=== PATIENT | female | born 1990 | race Caucasian/White ===

== ENCOUNTER 2019-09-30 20:42 | Day surgery (SDC) | payer BC ==
--- NOTE | 2019-09-30 21:05 | EDM.PDOC ---
ED HPI GENERAL MEDICAL PROBLEM <Spencer Box - Last Filed: 10/01/19 02:32> - General Source of Information: Reports: Patient History Limitations: Reports: No Limitations Head Pain Score (Numeric/FACES): 1 <Cooper Zayas - Last Filed: 10/01/19 10:15> - General Chief Complaint: RN DIALYSIS Problem Stated Complaint: spoke to nurse Time Seen by Provider: 09/30/19 20:44 - History of Present Illness INITIAL COMMENTS - FREE TEXT/NARRATIVE: HISTORY AND PHYSICAL: History of present illness: Patient is a 29-year-old female who presents to the emergency room with complaints of vaginal bleeding in . Patient reports her last menstrual period was July 23, did have a confirmed test with her primary care provider. She estimates she is approximately 9 to 10 weeks gestation. Yesterday she had severe abdominal cramping and started bleeding. She states that she has had a previous miscarriage and thought she would wait a couple days before being evaluated, hoping it usama resolve at home. Currently she is pain-free but continues to have heavy vaginal bleeding. Denies any recent sexual intercourse. Denies any trauma or injury. Patient denies any fever, chills, headache, change in vision, syncope or near syncope. Denies any chest pain, back pain, shortness of breath or cough. Denies any abdominal pain, nausea, vomiting, diarrhea, constipation or dysuria. Patient has been eating and drinking appropriately. OBGYN is Dr Grande. , P:1 (previous miscarriage at 10 weeks). Review of systems: As per history of present illness and below otherwise all systems reviewed and negative. Past medical history: As per history of present illness and as reviewed below otherwise noncontributory. Surgical history: As per history of present illness and as reviewed below otherwise noncontributory. Social history: See social history for further information Family history: As per history of present illness and as reviewed below otherwise noncontributory. Physical exam: General: Well-developed and well-nourished 29-year-old female. Alert and oriented. Nontoxic-appearing and in no acute distress. HEENT: Atraumatic, normocephalic, pupils equal and reactive bilaterally, negative for conjunctival pallor or scleral icterus, mucous membranes moist, TMs normal bilaterally, throat clear, neck supple, nontender, trachea midline. No drooling or trismus noted. No meningeal signs. No hot potato voice noted. Lungs: Clear to auscultation, breath sounds equal bilaterally, chest nontender. Heart: S1S2, regular rate and rhythm without overt murmur Abdomen: Soft, nondistended, nontender. Negative for masses or hepatosplenomegaly. Negative for costovertebral tenderness. Skin: Intact, warm, dry. No lesions or rashes noted. Extremities: Atraumatic, moves all extremities per self without difficulty or deficits, negative for cords or calf pain. Neurovascular unremarkable. Neuro: Awake, alert, oriented. Cranial nerves II through XII unremarkable. Cerebellum unremarkable. Motor and sensory unremarkable throughout. Exam nonfocal. Notes: Patient states she is not in pain and would prefer not to have any form of narcotics as she states she has a problem with the addiction component in these. Some lab results and ultrasound report are pending. Dr Box will follow through with this patient and disposition appropriately. Diagnostics: CBC, CMP, UA, AB/RH, OB ultrasound Therapeutics: RhoGam, IV fluids Definitive disposition and diagnosis as appropriate pending reevaluation and review of above. (Cooper Zayas) - Related Data Allergies Allergy/AdvReac Type Severity Reaction Status Date / Time amoxicillin Allergy Other Verified 09/30/19 20:47 Home Meds: Home Meds . [No Known Home Meds] 09/30/19 [History] Past Medical History RN DIALYSIS History: Reports: Spontaneous - Infectious Disease History Infectious Disease History: Reports: Chicken Pox - Past Surgical History Female Surgical History: Reports: Section, Other (See Below) <Cooper Zayas - Last Filed: 10/01/19 10:15> Social & Family History - Family History Family Medical History: Noncontributory - Tobacco Use Smoking Status *Q: Current Every Day Smoker Years of Tobacco use: 15 Packs/Tins Daily: 1 - Caffeine Use Caffeine Use: Reports: Coffee, Energy Drinks, Soda, Tea - Recreational Drug Use Recreational Drug Use: Yes Recreational Drug Type: Reports: Marijuana/Hashish Recreational Drug Use Frequency: Not Used In Over 1 Month <Cooper Zayas - Last Filed: 10/01/19 10:15> ED ROS GENERAL - Review of Systems Review Of Systems: See Below <Spencer Box - Last Filed: 10/01/19 02:32> - Review of Systems Review Of Systems: Comprehensive ROS is negative, except as noted in HPI. <Cooper Zayas - Last Filed: 10/01/19 10:15> ED EXAM - Physical Exam Exam: See Below Exam Limited By: No Limitations General Appearance: Alert, WD/WN, Anxious Ears: Normal External Exam, Normal Canal, Hearing Grossly Normal, Normal TMs Nose: Normal Inspection Throat/Mouth: Normal Inspection, Normal Lips, Normal Teeth Head: Atraumatic, Normocephalic Neck: Normal Inspection Respiratory/Chest: No Respiratory Distress, Lungs Clear, Normal Breath Sounds Cardiovascular: Normal Peripheral Pulses, Regular Rate, Rhythm, No JVD GI/Abdominal Exam: Normal Bowel Sounds, Soft, Non-Tender, No Organomegaly (Female) Exam: Vaginal Bleeding, Other (Patient's exam through RN DIALYSIS/active bleeding/ultrasound shows pleat AB with active bleeding) Back Exam: Normal Inspection, Full Range of Motion Extremities: Normal Inspection, Normal Range of Motion, No Pedal Edema Neurological: Alert, Oriented, CN II-XII Intact, Normal Reflexes, No Motor/ Sensory Deficits Psychiatric: Normal Affect, Normal Mood Skin Exam: Warm, Dry, Intact, Normal Color Lymphatic: No Adenopathy <Spencer Box - Last Filed: 10/01/19 02:32> - Physical Exam Exam: See Below <Cooper Zayas - Last Filed: 10/01/19 10:15> Course <Spnecer Box - Last Filed: 10/01/19 02:32> <Cooper Zayas - Last Filed: 10/01/19 10:15> - Vital Signs Text/Narrative:: 421 for this patient this is Dr. Box. G3, P1 Ab1 10 weeks with an ultrasound that shows probable miscarriage in process. Patient has been receiving IV fluids heart rate now is 96 initially 130 in triage. Patient's hemoglobin is 8/no previous CBCs to compare. Patient also is Rh- has received 1 g. I discussed the case with the K[employer] rn telephone triage who will come down to evaluate the patient. . Patient's evaluated by RN DIALYSIS felt to to go to the OR for D&C patient receiving blood products. Patient will be admitted for incomplete AB with severe anemia and hypotension. (Spencer Box) Last Recorded V/S: Last Vital Signs Temp 98.1 F 10/01/19 07:00 Pulse 95 10/01/19 08:00 Resp 17 10/01/19 08:00 BP 92/51 L 10/01/19 08:00 Pulse Ox 98 10/01/19 08:00 - Orders/Labs/Meds Orders: Active Orders 24 hr Category Date Time Status Admission Status [Patient Status] [ADT] Stat ADT 10/01/19 02:22 Active Patient Status [ADT] Routine ADT 10/01/19 03:40 Active Antiembolic Devices [RC] PER UNIT ROUTINE Care 10/01/19 03:40 Active Influenza Vaccine Charge [RC] .DISCHARGE Care 10/01/19 09:08 Active Notify Provider Consults [RC] ASDIRECTED Care 10/01/19 00:37 Active Notify Provider Intake and Out [RC] ASDIRECTED Care 10/01/19 03:40 Active Notify Provider Vital Signs [RC] ASDIRECTED Care 10/01/19 03:40 Active RT Incentive Spirometry [RC] Q2HWA Care 10/01/19 03:40 Active Up With Assistance [RC] PER UNIT ROUTINE Care 10/01/19 03:40 Active Up ad Teagan [RC] PER UNIT ROUTINE Care 10/01/19 03:40 Active Vaccines to be Administered [RC] PER UNIT ROUTINE Care 10/01/19 09:08 Active Vital Signs [RC] PER UNIT ROUTINE Care 10/01/19 03:40 Active Consult to Physician [CONS] Stat Cons 10/01/19 00:36 Active Regular Diet [DIET] Diet 10/01/19 Breakfast Active RED BLOOD CELLS LP [BBK] Stat Lab 10/01/19 00:32 Results RED BLOOD CELLS LP [BBK] Stat Lab 10/01/19 00:45 Results RH IMMUNE GLOBULIN [BBK] Stat Lab 09/30/19 21:04 Results RHOGAM, [RHIG WORKUP, ] [BBK] Stat Lab 09/30/19 21:04 Results TYPE AND SCREEN [BBK] Stat Lab 09/30/19 21:04 Results TYPE AND SCREEN [BBK] Stat Lab 10/01/19 00:45 Results Acetaminophen/oxyCODONE [Percocet 325-5 MG] Med 10/01/19 03:39 Active 1 tab PO Q4H PRN Acetaminophen/oxyCODONE [Percocet 325-5 MG] Med 10/01/19 03:39 Active 2 tab PO Q4H PRN Ketorolac [Toradol] Med 10/01/19 09:00 Active 30 mg IVPUSH Q6H PRN Lactated Ringers [Ringers, Lactated] 1,000 ml Med 10/01/19 03:45 Active IV ASDIRECTED Morphine Med 10/01/19 03:39 Active 4 mg IVPUSH Q2H PRN Ondansetron [Zofran] Med 10/01/19 03:39 Active 4 mg IVPUSH Q6H PRN Promethazine [Phenergan] Med 10/01/19 03:39 Active 25 mg IM Q6H PRN fentaNYL [Sublimaze] Med 10/01/19 01:59 Active 50 mcg IVPUSH Q5M PRN Peripheral IV Discontinue [OM.PC] Routine Oth 10/01/19 03:40 Ordered Sequential Compression Device [OM.PC] Per Unit Routine Oth 10/01/19 03:40 Ordered Resuscitation Status Routine Resus Stat 10/01/19 03:39 Ordered Medication Orders Fentanyl (Sublimaze) 50 mcg IVPUSH Q5M PRN PRN Reason: Pain Lactated Ringer's (Ringers, Lactated) 1,000 mls @ 125 mls/hr IV ASDIRECTED KEISHA Last Admin: 10/01/19 06:43 Dose: 125 mls/hr Ketorolac Tromethamine (Toradol) 30 mg IVPUSH Q6H PRN PRN Reason: Pain (severe 7-10) Stop: 10/06/19 09:01 Morphine Sulfate (Morphine) 4 mg IVPUSH Q2H PRN PRN Reason: Pain (severe 7-10) Ondansetron HCl (Zofran) 4 mg IVPUSH Q6H PRN PRN Reason: Nausea/Vomiting Oxycodone/Acetaminophen (Percocet 325-5 Mg) 1 tab PO Q4H PRN PRN Reason: Pain (moderate 4-6) Oxycodone/Acetaminophen (Percocet 325-5 Mg) 2 tab PO Q4H PRN PRN Reason: Pain (moderate 4-6) Promethazine HCl (Phenergan) 25 mg IM Q6H PRN PRN Reason: Nausea/Vomiting Labs: Laboratory Tests 09/30/19 09/30/19 09/30/19 Range/Units 21:04 21:04 21:04 WBC 13.41 H (4.0-11.0) K/uL RBC 2.81 L (4.30-5.90) M/uL Hgb 8.6 L (12.0-16.0) g/dL Hct 25.7 L (36.0-46.0) % MCV 91.5 (80.0-98.0) fL MCH 30.6 (27.0-32.0) pg MCHC 33.5 (31.0-37.0) g/dL RDW Std Deviation 42.4 (28.0-62.0) fl RDW Coeff of Sheela 13 (11.0-15.0) % Plt Count 188 (150-400) K/uL MPV 9.40 (7.40-12.00) fL Neut % (Auto) 77.3 (48.0-80.0) % Lymph % (Auto) 15.5 L (16.0-40.0) % Kaufman % (Auto) 6.5 (0.0-15.0) % Eos % (Auto) 0.6 (0.0-7.0) % Baso % (Auto) 0.1 (0.0-1.5) % Neut # (Auto) 10.4 H (1.4-5.7) K/uL Lymph # (Auto) 2.1 (0.6-2.4) K/uL Kaufman # (Auto) 0.9 H (0.0-0.8) K/uL Eos # (Auto) 0.1 (0.0-0.7) K/uL Baso # (Auto) 0.0 (0.0-0.1) K/uL Nucleated RBC % 0.0 /100WBC Nucleated RBCs # 0 K/uL Sodium 141 (136-145) mmol/L Potassium 4.1 (3.5-5.1) mmol/L Chloride 105 (98-107) mmol/L Carbon Dioxide 24.4 (21.0-32.0) mmol/L BUN 9 (7.0-18.0) mg/dL Creatinine 1.0 (0.6-1.0) mg/dL Est Cr Clr Drug Dosing 91.94 mL/min Estimated GFR (MDRD) > 60.0 ml/min Glucose 133 H (74-106) mg/dL Calcium 9.5 (8.5-10.1) mg/dL Total Bilirubin 0.2 (0.2-1.0) mg/dL AST 14 L (15-37) IU/L ALT 21 (14-63) IU/L Alkaline Phosphatase 54 (46-116) U/L Total Protein 6.3 L (6.4-8.2) g/dL Albumin 3.1 L (3.4-5.0) g/dL Globulin 3.2 (2.6-4.0) g/dL Albumin/Globulin Ratio 1.0 (0.9-1.6) HCG, Quant 61546.0 mIU/mL Urine Color Urine Appearance Urine pH (5.0-8.0) Ur Specific [place] (1.001-1.035) Urine Protein (NEGATIVE) mg/dL Urine Glucose (UA) (NEGATIVE) mg/dL Urine Ketones (NEGATIVE) mg/dL Urine Occult Blood (NEGATIVE) Urine Nitrite (NEGATIVE) Urine Bilirubin (NEGATIVE) Urine Urobilinogen (<2.0) EU/dL Ur Leukocyte Esterase (NEGATIVE) Urine RBC (0-2/HPF) Urine WBC (0-5/HPF) Ur Epithelial Cells (NONE-FEW) Urine Bacteria (NEGATIVE) Blood Type O NEGATIVE Antibody Screen NEGATIVE Rhogam Indicated YES Crossmatch See Detail 10/01/19 10/01/19 10/01/19 Range/Units 00:45 01:30 09:08 WBC 9.72 (4.0-11.0) K/uL RBC 2.43 L (4.30-5.90) M/uL Hgb 7.3 L (12.0-16.0) g/dL Hct 21.3 L (36.0-46.0) % MCV 87.7 (80.0-98.0) fL MCH 30.0 (27.0-32.0) pg MCHC 34.3 (31.0-37.0) g/dL RDW Std Deviation 46.7 (28.0-62.0) fl RDW Coeff of Sheela 15 (11.0-15.0) % Plt Count 151 (150-400) K/uL MPV 9.40 (7.40-12.00) fL Neut % (Auto) 66.6 (48.0-80.0) % Lymph % (Auto) 25.2 (16.0-40.0) % Kaufman % (Auto) 7.2 (0.0-15.0) % Eos % (Auto) 0.9 (0.0-7.0) % Baso % (Auto) 0.1 (0.0-1.5) % Neut # (Auto) 6.5 H (1.4-5.7) K/uL Lymph # (Auto) 2.5 H (0.6-2.4) K/uL Kaufman # (Auto) 0.7 (0.0-0.8) K/uL Eos # (Auto) 0.1 (0.0-0.7) K/uL Baso # (Auto) 0.0 (0.0-0.1) K/uL Nucleated RBC % 0.0 /100WBC Nucleated RBCs # 0 K/uL Sodium (136-145) mmol/L Potassium (3.5-5.1) mmol/L Chloride (98-107) mmol/L Carbon Dioxide (21.0-32.0) mmol/L BUN (7.0-18.0) mg/dL Creatinine (0.6-1.0) mg/dL Est Cr Clr Drug Dosing mL/min Estimated GFR (MDRD) ml/min Glucose (74-106) mg/dL Calcium (8.5-10.1) mg/dL Total Bilirubin (0.2-1.0) mg/dL AST (15-37) IU/L ALT (14-63) IU/L Alkaline Phosphatase (46-116) U/L Total Protein (6.4-8.2) g/dL Albumin (3.4-5.0) g/dL Globulin (2.6-4.0) g/dL Albumin/Globulin Ratio (0.9-1.6) HCG, Quant mIU/mL Urine Color YELLOW Urine Appearance SLT CLOUDY Urine pH 6.0 (5.0-8.0) Ur Specific [place] 1.015 (1.001-1.035) Urine Protein NEGATIVE (NEGATIVE) mg/dL Urine Glucose (UA) NEGATIVE (NEGATIVE) mg/dL Urine Ketones NEGATIVE (NEGATIVE) mg/dL Urine Occult Blood LARGE H (NEGATIVE) Urine Nitrite NEGATIVE (NEGATIVE) Urine Bilirubin NEGATIVE (NEGATIVE) Urine Urobilinogen 0.2 (<2.0) EU/dL Ur Leukocyte Esterase SMALL H (NEGATIVE) Urine RBC 40-50 (0-2/HPF) Urine WBC 1-4 (0-5/HPF) Ur Epithelial Cells FEW (NONE-FEW) Urine Bacteria RARE (NEGATIVE) Blood Type O NEGATIVE Antibody Screen NEGATIVE Rhogam Indicated Crossmatch See Detail Meds: Medications Generic Name Dose Route Start Last Admin Trade Name Freq PRN Reason Stop Dose Admin Fentanyl 50 mcg 10/01/19 01:59 Sublimaze IVPUSH Q5M PRN Pain Lactated Ringer's 1,000 mls @ 125 mls/hr 10/01/19 03:45 10/01/19 06:43 Ringers, Lactated IV 125 mls/hr ASDIRECTED KEISHA Administration Ketorolac Tromethamine 30 mg 10/01/19 09:00 Toradol IVPUSH 10/06/19 09:01 Q6H PRN Pain (severe 7-10) Morphine Sulfate 4 mg 10/01/19 03:39 Morphine IVPUSH Q2H PRN Pain (severe 7-10) Ondansetron HCl 4 mg 10/01/19 03:39 Zofran IVPUSH Q6H PRN Nausea/Vomiting Oxycodone/Acetaminophen 1 tab 10/01/19 03:39 Percocet 325-5 Mg PO Q4H PRN Pain (moderate 4-6) Oxycodone/Acetaminophen 2 tab 10/01/19 03:39 Percocet 325-5 Mg PO Q4H PRN Pain (moderate 4-6) Promethazine HCl 25 mg 10/01/19 03:39 Phenergan IM Q6H PRN Nausea/Vomiting Discontinued Medications Generic Name Dose Route Start Last Admin Trade Name Freq PRN Reason Stop Dose Admin Diphtheria/Tetanus/Acell Pertussis 0.5 ml 10/01/19 09:08 Adacel IM 10/01/19 09:09 .ONCE ONE Doxycycline Hyclate 200 mg 10/01/19 01:25 10/01/19 01:34 Vibramycin PO 10/01/19 01:26 200 mg ONETIME ONE Administration Doxycycline Hyclate 100 mg 10/01/19 05:00 10/01/19 07:29 Vibramycin PO 10/01/19 05:01 Not Given ONETIME ONE Etomidate Confirm 10/01/19 02:04 Amidate Administered 10/01/19 02:05 Dose 40 mg IVPUSH .STK-MED ONE Fentanyl Confirm 10/01/19 02:06 Sublimaze Administered 10/01/19 02:07 Dose 100 mcg .ROUTE .STK-MED ONE Glycopyrrolate Confirm 10/01/19 02:05 Robinul Administered 10/01/19 02:06 Dose 0.2 mg .ROUTE .STK-MED ONE Sodium Chloride 1,000 mls @ 999 mls/hr 09/30/19 21:15 09/30/19 23:00 Normal Saline IV 09/30/19 22:15 999 mls/hr STAT ONE Administration Sodium Chloride 1,000 mls @ 999 mls/hr 10/01/19 01:51 10/01/19 02:05 Normal Saline IV 10/01/19 02:51 999 mls/hr .Bolus ONE Administration Sodium Chloride 1,000 mls @ 999 mls/hr 10/01/19 01:51 10/01/19 02:06 Normal Saline IV 10/01/19 02:51 999 mls/hr .Bolus ONE Administration Influenza Virus Vaccine 1 each 10/01/19 09:07 Pharmacy To Dose - Influenza Vaccine IM 10/01/19 09:08 ONETIME ONE Influenza Virus Vaccine 60 mcg 10/01/19 09:30 Fluzone Quad 1328-1956 Syringe IM 10/01/19 09:31 .ONCE ONE Ketorolac Tromethamine 30 mg 10/01/19 03:39 10/01/19 04:00 Toradol IVPUSH 10/01/19 03:40 30 mg ONETIME ONE Administration Lidocaine HCl Confirm 10/01/19 02:04 Xylocaine-Mpf 1% Administered 10/01/19 02:05 Dose 5 ml .ROUTE .STK-MED ONE Methylergonovine Maleate 0.2 mg 10/01/19 01:47 10/01/19 02:03 Methergine PO 10/01/19 01:48 Not Given ONETIME ONE Methylergonovine Maleate Confirm 10/01/19 01:55 10/01/19 02:03 Methergine Administered 10/01/19 01:56 Not Given Dose 0.2 mg .ROUTE .STK-MED ONE Methylergonovine Maleate 0.2 mg 10/01/19 02:02 10/01/19 02:03 Methergine IM 10/01/19 02:03 0.2 mg Q4H ONE Administration Midazolam HCl Confirm 10/01/19 02:06 Versed 1 Mg/Ml Administered 10/01/19 02:07 Dose 2 mg .ROUTE .STK-MED ONE Misoprostol Confirm 10/01/19 02:33 10/01/19 07:29 Cytotec Administered 10/01/19 02:34 Not Given Dose 800 mcg .ROUTE .STK-MED ONE Ondansetron HCl Confirm 10/01/19 02:04 Zofran Administered 10/01/19 02:05 Dose 4 mg .ROUTE .STK-MED ONE Phenylephrine HCl Confirm 10/01/19 02:02 Lalo-Synephrine Administered 10/01/19 02:03 Dose 10 mg .ROUTE .STK-MED ONE Tranexamic Acid Confirm 10/01/19 02:28 Cyklokapron Administered 10/01/19 02:29 Dose 1,000 mg .ROUTE .STK-MED ONE Departure - Departure Time of Disposition: 02:34 Condition: Fair <Spencer Box - Last Filed: 10/01/19 02:32> <Cooper Zayas - Last Filed: 10/01/19 10:15> - Departure Disposition: Admitted As Inpatient 65 Clinical Impression: Incomplete , Incomplete with complication Sepsis Event Note - Focused Exam Date Exam was Performed: 10/01/19 Time Exam was Performed: 02:32 <Spencer Box - Last Filed: 10/01/19 02:32> - Evaluation Sepsis Screening Result: No Definite Risk - Focused Exam Date Exam was Performed: 10/01/19 Time Exam was Performed: 10:12 <Cooper Zayas E - Last Filed: 10/01/19 10:15> - Focused Exam Vital Signs: Vital Signs Temp Temp Pulse Resp BP Pulse Ox 10/01/19 08:00 95 17 92/51 L 98 10/01/19 07:00 98.1 F 99/51 L 10/01/19 06:30 15 91/48 L 95 10/01/19 06:00 98.1 F 16 98/49 L 95 10/01/19 05:45 91 15 107/53 L 95 10/01/19 05:30 92 14 106/51 L 95 10/01/19 05:15 98.4 F 94 14 115/53 L 98 10/01/19 04:05 106 H 11 L 114/35 L 100 10/01/19 04:00 92 13 128/49 L 100 10/01/19 03:55 100 14 122/53 L 100 10/01/19 03:50 100 13 119/50 L 100 10/01/19 03:45 99 10 L 118/49 L 100 10/01/19 03:40 99 9 L 112/43 L 100 10/01/19 03:35 109 H 12 120/50 L 100 10/01/19 03:30 106 H 18 115/59 L 100 10/01/19 03:25 105 H 12 114/64 100 10/01/19 03:20 102 H 11 L 107/66 100 10/01/19 03:15 110 H 15 117/56 L 99 10/01/19 03:10 98.6 F 135 H 18 125/48 L 98 10/01/19 02:08 104 H 16 127/81 100 10/01/19 02:00 100 16 127/81 10/01/19 01:52 98.5 F 98 16 110/66 10/01/19 01:34 97 16 103/79 100 09/30/19 23:48 97 16 120/55 L 100 09/30/19 23:10 97.1 F 97 16 124/61 09/30/19 22:49 97.1 F 103 H 16 139/61 - My Orders Last 24 Hours: My Active Orders 09/30/19 21:04 RH IMMUNE GLOBULIN [BBK] Stat RHOGAM, [RHIG WORKUP, ] [BBK] Stat - Assessment/Plan Last 24 Hours: My Active Orders 09/30/19 21:04 RH IMMUNE GLOBULIN [BBK] Stat RHOGAM, [RHIG WORKUP, ] [BBK] Stat
[2019-09-30] MEDS: Sodium Chloride 0.9% 1,000 ML IV ONE ×2 (21:37→23:00)
[2019-09-30 21:53] LABS: BLOOD UREA NITROGEN,BUN 9 mg/dL (7.0-18.0); CARBON DIOXIDE,CO2 24.4 mmol/L (21.0-32.0); CHLORIDE,CL 105 mmol/L (98-107); GLUCOSE RANDOM 133 mg/dL (74-106); POTASSIUM,K 4.1 mmol/L (3.5-5.1); SODIUM,NA 141 mmol/L (136-145)
--- NOTE | 2019-09-30 22:30 | US ---
INDICATION: Vaginal bleeding in . Passing blood clot TECHNIQUE: Real-time tavarez-scale imaging of the pelvis was performed. FINDINGS: Thickened heterogeneous endometrium measuring 2.5 centimeters could be related to presence of blood products. There is large amount of heterogeneous material in the endocervical canal. Small cystic structure seen in the endocervical canal question could be related to possible gestational sac versus debris/blood products. There is debris within the urinary bladder. Both ovaries are visualized. No adnexal mass or free fluid is seen. IMPRESSION: Heterogeneous thickened endometrium measuring 2.5 centimeters may be related to presence of blood products. Large amount of heterogeneous material in the endocervical canal. Small cystic structure in the endocervical canal could reflect small gestational sac there is no surrounding blood flow present. This also could be related to debris or blood products in the endocervical canal. Both ovaries are visualized and appear normal. There is no adnexal mass. No free fluid visualized. Impression: Findings suspicious for miscarriage in progress. Recommend correlation with HCG levels and close follow-up. Dictated by Kacey Mccarthy MD @ Sep 30 2019 10:19PM Signed by Dr. Kacey Mccarthy @ Sep 30 2019 10:29PM
--- NOTE | 2019-10-01 00:40 | EDM.PDOC ---
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 she states she was soaking through pads on , she used about 3 pads, her bleeding lessened on wednesday and today she has been having bleeding for about 3 hrs. she also states she jan dizzy and almost passed out. She is yet to establish care with Dr Grande. Patient is RH negative and has recieved rhogam in the ER . she has also recieved IV fluid and states her dizziness is improved OB hx; X 1 Design Director: SAB X 1 FSH:Smoker , Hx of Marijuana use Allergies : Amoxicillin Exam: General: NAD Chest: CTA BL CVS S1 S2 no murmurs Abdomen: Soft , non tender, no masses , no rebound or guarding Pelvic: Normal external genitalia , 10 week sized uterus , Cervix - os opened with clot within , attempted to remove some clots and products with ring forcep , however still bleeding VSS:103/79 ., 97 CBC 13 < 8.6/25.7> 188 A/P 29 @ 10w0d with incomplete , Rh negative , recieved rhogam , Anemia Plan NPO IVF bolus running Doxycycline 200mg stat 2UPRBC Patient consent for Suction D & C - Related Data Allergies Allergy/AdvReac Type Severity Reaction Status Date / Time amoxicillin Allergy Other Verified 09/30/19 20:47 Home Meds: Home Meds . 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 - Infectious Disease History Infectious Disease History: Reports: Chicken Pox - Past Surgical History Female Surgical History: Reports: Section, Other (See Below) Social & Family History - Family History Family Medical History: Noncontributory - Tobacco Use Smoking Status *Q: Current Every Day Smoker Years of Tobacco use: 15 Packs/Tins Daily: 1 - Caffeine Use Caffeine Use: Reports: Coffee, Energy Drinks, Soda, Tea - Recreational Drug Use Recreational Drug Use: Yes Recreational Drug Type: Reports: Marijuana/Hashish Recreational Drug Use Frequency: Not Used In Over 1 Month ED ROS GENERAL - Review of Systems Review Of Systems: See Below Constitutional: Reports: Fatigue HEENT: Reports: No Symptoms Respiratory: Reports: No Symptoms Cardiovascular: Reports: No Symptoms Endocrine: Reports: No Symptoms ED EXAM - Physical Exam Exam: See Below Exam Limited By: No Limitations Throat/Mouth: Normal Inspection Respiratory/Chest: No Respiratory Distress Cardiovascular: Normal Peripheral Pulses Course - Vital Signs Last Recorded V/S: Last Vital Signs Temp 36.9 C 10/01/19 01:52 Pulse 98 10/01/19 01:52 Resp 16 10/01/19 01:52 BP 110/66 10/01/19 01:52 Pulse Ox 100 10/01/19 01:34 - Orders/Labs/Meds Orders: Active Orders 24 hr Category Date Time Status Notify Provider Consults [RC] ASDIRECTED Care 10/01/19 00:37 Active Consult to Physician [CONS] Stat Cons 10/01/19 00:36 Active RED BLOOD CELLS LP [BBK] Stat Lab 10/01/19 00:32 Results RED BLOOD CELLS LP [BBK] Stat Lab 10/01/19 00:45 Results RH IMMUNE GLOBULIN [BBK] Stat Lab 09/30/19 21:04 Results RHOGAM, [RHIG WORKUP, ] [BBK] Stat Lab 09/30/19 21:04 Results TYPE AND SCREEN [BBK] Stat Lab 09/30/19 21:04 Results TYPE AND SCREEN [BBK] Stat Lab 10/01/19 00:45 Results Sodium Chloride 0.9% [Normal Saline] 1,000 ml Med 10/01/19 01:51 Active IV .Bolus Sodium Chloride 0.9% [Normal Saline] 1,000 ml Med 10/01/19 01:51 Active IV .Bolus Medication Orders Sodium Chloride (Normal Saline) 1,000 mls @ 999 mls/hr IV .Bolus ONE Stop: 10/01/19 02:51 Sodium Chloride (Normal Saline) 1,000 mls @ 999 mls/hr IV .Bolus ONE Stop: 10/01/19 02:51 Labs: Laboratory Tests 09/30/19 09/30/19 09/30/19 Range/Units 21:04 21:04 21:04 WBC 13.41 H (4.0-11.0) K/uL RBC 2.81 L (4.30-5.90) M/uL Hgb 8.6 L (12.0-16.0) g/dL Hct 25.7 L (36.0-46.0) % MCV 91.5 (80.0-98.0) fL MCH 30.6 (27.0-32.0) pg MCHC 33.5 (31.0-37.0) g/dL RDW Std Deviation 42.4 (28.0-62.0) fl RDW Coeff of Sheela 13 (11.0-15.0) % Plt Count 188 (150-400) K/uL MPV 9.40 (7.40-12.00) fL Neut % (Auto) 77.3 (48.0-80.0) % Lymph % (Auto) 15.5 L (16.0-40.0) % [place] % (Auto) 6.5 (0.0-15.0) % Eos % (Auto) 0.6 (0.0-7.0) % Baso % (Auto) 0.1 (0.0-1.5) % Neut # (Auto) 10.4 H (1.4-5.7) K/uL Lymph # (Auto) 2.1 (0.6-2.4) K/uL [place] # (Auto) 0.9 H (0.0-0.8) K/uL Eos # (Auto) 0.1 (0.0-0.7) K/uL Baso # (Auto) 0.0 (0.0-0.1) K/uL Nucleated RBC % 0.0 /100WBC Nucleated RBCs # 0 K/uL Sodium 141 (136-145) mmol/L Potassium 4.1 (3.5-5.1) mmol/L Chloride 105 (98-107) mmol/L Carbon Dioxide 24.4 (21.0-32.0) mmol/L BUN 9 (7.0-18.0) mg/dL Creatinine 1.0 (0.6-1.0) mg/dL Est Cr Clr Drug Dosing 91.94 mL/min Estimated GFR (MDRD) > 60.0 ml/min Glucose 133 H (74-106) mg/dL Calcium 9.5 (8.5-10.1) mg/dL Total Bilirubin 0.2 (0.2-1.0) mg/dL AST 14 L (15-37) IU/L ALT 21 (14-63) IU/L Alkaline Phosphatase 54 (46-116) U/L Total Protein 6.3 L (6.4-8.2) g/dL Albumin 3.1 L (3.4-5.0) g/dL Globulin 3.2 (2.6-4.0) g/dL Albumin/Globulin Ratio 1.0 (0.9-1.6) HCG, Quant 07096.0 mIU/mL Urine Color Urine Appearance Urine pH (5.0-8.0) Ur Specific [place] (1.001-1.035) Urine Protein (NEGATIVE) mg/dL Urine Glucose (UA) (NEGATIVE) mg/dL Urine Ketones (NEGATIVE) mg/dL Urine Occult Blood (NEGATIVE) Urine Nitrite (NEGATIVE) Urine Bilirubin (NEGATIVE) Urine Urobilinogen (<2.0) EU/dL Ur Leukocyte Esterase (NEGATIVE) Urine RBC (0-2/HPF) Urine WBC (0-5/HPF) Ur Epithelial Cells (NONE-FEW) Urine Bacteria (NEGATIVE) Blood Type O NEGATIVE Antibody Screen NEGATIVE Rhogam Indicated YES Crossmatch See Detail 10/01/19 10/01/19 Range/Units 00:45 01:30 WBC (4.0-11.0) K/uL RBC (4.30-5.90) M/uL Hgb (12.0-16.0) g/dL Hct (36.0-46.0) % MCV (80.0-98.0) fL MCH (27.0-32.0) pg MCHC (31.0-37.0) g/dL RDW Std Deviation (28.0-62.0) fl RDW Coeff of Sheela (11.0-15.0) % Plt Count (150-400) K/uL MPV (7.40-12.00) fL Neut % (Auto) (48.0-80.0) % Lymph % (Auto) (16.0-40.0) % [place] % (Auto) (0.0-15.0) % Eos % (Auto) (0.0-7.0) % Baso % (Auto) (0.0-1.5) % Neut # (Auto) (1.4-5.7) K/uL Lymph # (Auto) (0.6-2.4) K/uL [place] # (Auto) (0.0-0.8) K/uL Eos # (Auto) (0.0-0.7) K/uL Baso # (Auto) (0.0-0.1) K/uL Nucleated RBC % /100WBC Nucleated RBCs # K/uL Sodium (136-145) mmol/L Potassium (3.5-5.1) mmol/L Chloride (98-107) mmol/L Carbon Dioxide (21.0-32.0) mmol/L BUN (7.0-18.0) mg/dL Creatinine (0.6-1.0) mg/dL Est Cr Clr Drug Dosing mL/min Estimated GFR (MDRD) ml/min Glucose (74-106) mg/dL Calcium (8.5-10.1) mg/dL Total Bilirubin (0.2-1.0) mg/dL AST (15-37) IU/L ALT (14-63) IU/L Alkaline Phosphatase (46-116) U/L Total Protein (6.4-8.2) g/dL Albumin (3.4-5.0) g/dL Globulin (2.6-4.0) g/dL Albumin/Globulin Ratio (0.9-1.6) HCG, Quant mIU/mL Urine Color YELLOW Urine Appearance SLT CLOUDY Urine pH 6.0 (5.0-8.0) Ur Specific [place] 1.015 (1.001-1.035) Urine Protein NEGATIVE (NEGATIVE) mg/dL Urine Glucose (UA) NEGATIVE (NEGATIVE) mg/dL Urine Ketones NEGATIVE (NEGATIVE) mg/dL Urine Occult Blood LARGE H (NEGATIVE) Urine Nitrite NEGATIVE (NEGATIVE) Urine Bilirubin NEGATIVE (NEGATIVE) Urine Urobilinogen 0.2 (<2.0) EU/dL Ur Leukocyte Esterase SMALL H (NEGATIVE) Urine RBC 40-50 (0-2/HPF) Urine WBC 1-4 (0-5/HPF) Ur Epithelial Cells FEW (NONE-FEW) Urine Bacteria RARE (NEGATIVE) Blood Type O NEGATIVE Antibody Screen NEGATIVE Rhogam Indicated Crossmatch See Detail Meds: Medications Generic Name Dose Route Start Last Admin Trade Name Freq PRN Reason Stop Dose Admin Sodium Chloride 1,000 mls @ 999 mls/hr 10/01/19 01:51 Normal Saline IV 10/01/19 02:51 .Bolus ONE Sodium Chloride 1,000 mls @ 999 mls/hr 10/01/19 01:51 Normal Saline IV 10/01/19 02:51 .Bolus ONE Discontinued Medications Generic Name Dose Route Start Last Admin Trade Name Miguel Ángel PRN Reason Stop Dose Admin Doxycycline Hyclate 200 mg 10/01/19 01:25 10/01/19 01:34 Vibramycin PO 10/01/19 01:26 200 mg ONETIME ONE Administration Sodium Chloride 1,000 mls @ 999 mls/hr 09/30/19 21:15 09/30/19 23:00 Normal Saline IV 09/30/19 22:15 999 mls/hr STAT ONE Administration Methylergonovine Maleate 0.2 mg 10/01/19 01:47 Methergine PO 10/01/19 01:48 ONETIME ONE Departure - Departure Time of Disposition: 01:55 Disposition: Refer to Observation Condition: Fair Clinical Impression: Incomplete - Discharge Information *PRESCRIPTION DRUG MONITORING PROGRAM REVIEWED*: No *COPY OF PRESCRIPTION DRUG MONITORING REPORT IN PATIENT CHASE: No Referrals: PCP,Unknown [Ordering Only Provider] - Forms: ED Department Discharge Sepsis Event Note - Evaluation Sepsis Screening Result: No Definite Risk - Focused Exam Vital Signs: Vital Signs Temp Temp Pulse Resp BP Pulse Ox 10/01/19 01:52 36.9 C 98 16 110/66 10/01/19 01:34 97 16 103/79 100 09/30/19 23:48 97 16 120/55 L 100 09/30/19 23:10 36.2 C 97 16 124/61 09/30/19 22:49 36.2 C 103 H 16 139/61 09/30/19 22:09 93 16 136/69 100 09/30/19 21:31 96 16 100 09/30/19 20:48 36.1 C 120 H 20 126/75 100 Date Exam was Performed: 10/01/19 Time Exam was Performed: 01:56 - Problem List & Annotations (1) Incomplete SNOMED Code(s): 907377103 Code(s): O03.4 - INCOMPLETE SPONTANEOUS WITHOUT COMPLICATION Status: Acute Current Visit: Yes - Problem List Review Problem List Initiated/Reviewed/Updated: Yes
[2019-10-01] MEDS ORDERED: Doxycycline 100 MG Cap PO ONE ×2 (01:25→05:00)
[2019-10-01] MEDS ORDERED: Methylergonovine 0.2 MG Tab PO ONE (01:47)
[2019-10-01] MEDS ORDERED: Sodium Chloride 0.9% 1,000 ML IV ONE ×2 (01:51)
[2019-10-01] MEDS ORDERED: Methylergonovine 0.2 MG/1 ML Amp ONE (01:55)
[2019-10-01] MEDS ORDERED: fentaNYL 100 MCG/2 ML SDV IVPUSH PRN (01:59)
--- NOTE | 2019-10-01 01:59 | PCM.PREANE ---
Preanesthetic Assessment - Anesthesia/Transfusion/Family Hx Anesthesia History: Prior Anesthesia Without Reaction Family History of Anesthesia Reaction: No - Physical Assessment NPO Status Date: 09/30/19 NPO Status Time: 22:30 Vital Signs: Last Vital Signs Temp 36.9 C 10/01/19 01:52 Pulse 98 10/01/19 01:52 Resp 16 10/01/19 01:52 BP 110/66 10/01/19 01:52 Pulse Ox 100 10/01/19 01:34 Height: 1.8 m Weight: 108.862 kg ASA Class: 1E - Lab Values: Laboratory Last Values WBC 13.41 K/uL (4.0-11.0) H 09/30/19 21:04 RBC 2.81 M/uL (4.30-5.90) L 09/30/19 21:04 Hgb 8.6 g/dL (12.0-16.0) L 09/30/19 21:04 Hct 25.7 % (36.0-46.0) L 09/30/19 21:04 MCV 91.5 fL (80.0-98.0) 09/30/19 21:04 MCH 30.6 pg (27.0-32.0) 09/30/19 21:04 MCHC 33.5 g/dL (31.0-37.0) 09/30/19 21:04 RDW Std Deviation 42.4 fl (28.0-62.0) 09/30/19 21:04 RDW Coeff of Sheela 13 % (11.0-15.0) 09/30/19 21:04 Plt Count 188 K/uL (150-400) 09/30/19 21:04 MPV 9.40 fL (7.40-12.00) 09/30/19 21:04 Neut % (Auto) 77.3 % (48.0-80.0) 09/30/19 21:04 Lymph % (Auto) 15.5 % (16.0-40.0) L 09/30/19 21:04 [place] % (Auto) 6.5 % (0.0-15.0) 09/30/19 21:04 Eos % (Auto) 0.6 % (0.0-7.0) 09/30/19 21:04 Baso % (Auto) 0.1 % (0.0-1.5) 09/30/19 21:04 Neut # (Auto) 10.4 K/uL (1.4-5.7) H 09/30/19 21:04 Lymph # (Auto) 2.1 K/uL (0.6-2.4) 09/30/19 21:04 [place] # (Auto) 0.9 K/uL (0.0-0.8) H 09/30/19 21:04 Eos # (Auto) 0.1 K/uL (0.0-0.7) 09/30/19 21:04 Baso # (Auto) 0.0 K/uL (0.0-0.1) 09/30/19 21:04 Nucleated RBC % 0.0 /100WBC 09/30/19 21:04 Nucleated RBCs # 0 K/uL 09/30/19 21:04 Sodium 141 mmol/L (136-145) 09/30/19 21:04 Potassium 4.1 mmol/L (3.5-5.1) 09/30/19 21:04 Chloride 105 mmol/L (98-107) 09/30/19 21:04 Carbon Dioxide 24.4 mmol/L (21.0-32.0) 09/30/19 21:04 BUN 9 mg/dL (7.0-18.0) 09/30/19 21:04 Creatinine 1.0 mg/dL (0.6-1.0) 09/30/19 21:04 Est Cr Clr Drug Dosing 91.94 mL/min 09/30/19 21:04 Estimated GFR (MDRD) > 60.0 ml/min 09/30/19 21:04 Glucose 133 mg/dL (74-106) H 09/30/19 21:04 Calcium 9.5 mg/dL (8.5-10.1) 09/30/19 21:04 Total Bilirubin 0.2 mg/dL (0.2-1.0) 09/30/19 21:04 AST 14 IU/L (15-37) L 09/30/19 21:04 ALT 21 IU/L (14-63) 09/30/19 21:04 Alkaline Phosphatase 54 U/L (46-116) 09/30/19 21:04 Total Protein 6.3 g/dL (6.4-8.2) L 09/30/19 21:04 Albumin 3.1 g/dL (3.4-5.0) L 09/30/19 21:04 Globulin 3.2 g/dL (2.6-4.0) 09/30/19 21:04 Albumin/Globulin Ratio 1.0 (0.9-1.6) 09/30/19 21:04 HCG, Quant 67255.0 mIU/mL 09/30/19 21:04 Urine Color YELLOW 10/01/19 01:30 Urine Appearance SLT CLOUDY 10/01/19 01:30 Urine pH 6.0 (5.0-8.0) 10/01/19 01:30 Ur Specific [place] 1.015 (1.001-1.035) 10/01/19 01:30 Urine Protein NEGATIVE mg/dL (NEGATIVE) 10/01/19 01:30 Urine Glucose (UA) NEGATIVE mg/dL (NEGATIVE) 10/01/19 01:30 Urine Ketones NEGATIVE mg/dL (NEGATIVE) 10/01/19 01:30 Urine Occult Blood LARGE (NEGATIVE) H 10/01/19 01:30 Urine Nitrite NEGATIVE (NEGATIVE) 10/01/19 01:30 Urine Bilirubin NEGATIVE (NEGATIVE) 10/01/19 01:30 Urine Urobilinogen 0.2 EU/dL (<2.0) 10/01/19 01:30 Ur Leukocyte Esterase SMALL (NEGATIVE) H 10/01/19 01:30 Urine RBC 40-50 (0-2/HPF) 10/01/19 01:30 Urine WBC 1-4 (0-5/HPF) 10/01/19 01:30 Ur Epithelial Cells FEW (NONE-FEW) 10/01/19 01:30 Urine Bacteria RARE (NEGATIVE) 10/01/19 01:30 Blood Type O NEGATIVE 10/01/19 00:45 Antibody Screen NEGATIVE 10/01/19 00:45 Rhogam Indicated YES 09/30/19 21:04 Crossmatch See Detail 10/01/19 00:45 - Allergies Allergies/Adverse Reactions: Allergies Allergy/AdvReac Type Severity Reaction Status Date / Time amoxicillin Allergy Other Verified 09/30/19 20:47 - Acknowledgements Anesthesia Type Planned: General Anesthesia Pt an Appropriate Candidate for the Planned Anesthesia: Yes Alternatives and Risks of Anesthesia Discussed w Pt/Guardian: Yes Pt/Guardian Understands and Agrees with Anesthesia Plan: Yes 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 [No Known Home Meds] 09/30/19 [History] - CURRENT (IN HOUSE) MEDS Current Meds: Current Medications Sodium Chloride (Normal Saline) 1,000 mls @ 999 mls/hr IV .Bolus ONE Stop: 10/01/19 02:51 Sodium Chloride (Normal Saline) 1,000 mls @ 999 mls/hr IV .Bolus ONE Stop: 10/01/19 02:51 Discontinued Medications Doxycycline Hyclate (Vibramycin) 200 mg PO ONETIME ONE Stop: 10/01/19 01:26 Last Admin: 10/01/19 01:34 Dose: 200 mg Sodium Chloride (Normal Saline) 1,000 mls @ 999 mls/hr IV STAT ONE Stop: 09/30/19 22:15 Last Admin: 09/30/19 23:00 Dose: 999 mls/hr Methylergonovine Maleate (Methergine) 0.2 mg PO ONETIME ONE Stop: 10/01/19 01:48
[2019-10-01] MEDS ORDERED: Phenylephrine 1% 10 MG/ML SDV ONE (02:02)
[2019-10-01] MEDS ORDERED: Methylergonovine 0.2 MG/1 ML Amp IM ONE (02:02)
[2019-10-01] MEDS ORDERED: Etomidate 2 MG/ML 20 ML SDV IVPUSH ONE (02:04)
[2019-10-01] MEDS ORDERED: Ondansetron 4 MG/2 ML SDV ONE (02:04)
[2019-10-01] MEDS ORDERED: Succinylcholine/Sod PF 100 MG/5 ML SYRINGE IV ONE (02:04)
[2019-10-01] MEDS ORDERED: Glycopyrrolate 0.2 MG/ML SDV ONE (02:05)
[2019-10-01] MEDS ORDERED: Midazolam 1 MG/ML 2 ML SDV ONE (02:06)
[2019-10-01] MEDS ORDERED: fentaNYL 100 MCG/2 ML SDV ONE (02:06)
[2019-10-01] MEDS ORDERED: Misoprostol 200 MCG Tab ONE (02:33)
--- NOTE | 2019-10-01 03:33 | PCM.POSTAN ---
POST ANESTHESIA ASSESSMENT - MENTAL STATUS Mental Status: Alert - VITAL SIGNS Vital Signs: Last Vital Signs Temp 36.9 C 10/01/19 01:52 Pulse 104 H 10/01/19 02:08 Resp 16 10/01/19 02:08 BP 127/81 10/01/19 02:08 Pulse Ox 100 10/01/19 02:08 - RESPIRATORY Respiratory Status: Respiratory Rate WNL - CARDIOVASCULAR CV Status: Pulse Rate WNL - GASTROINTESTINAL GI Status: No Symptoms - POST OP HYDRATION Hydration Status: Adequate & Stable
[2019-10-01] MEDS ORDERED: Promethazine 25 MG/ML SDV IM PRN (03:39)
[2019-10-01] MEDS ORDERED: Acetaminophen/oxyCODONE 325-5 MG Tab PO PRN ×2 (03:39)
[2019-10-01] MEDS ORDERED: Ondansetron 4 MG/2 ML SDV IVPUSH PRN (03:39)
[2019-10-01] MEDS ORDERED: Morphine 4 MG/ML Syringe IVPUSH PRN (03:39)
[2019-10-01] MEDS ORDERED: Ketorolac 30 MG/ML SDV IVPUSH ONE (03:39)
[2019-10-01] MEDS ORDERED: Lactated Ringers 1,000 ML IV SCH (03:45)
--- NOTE | 2019-10-01 03:54 | PCM.OPNOTE ---
- General Post-Op/Procedure Note Date of Surgery/Procedure: 10/01/19 Operative Procedure(s): Suction , Dilatation and Curettage Findings: EUA showed 10 weeks Cervix is opened with product of conception Large amount of Products retrieved with size 11 curved curette Pre Op Diagnosis: 29yo @ 10weeks with incomplete Post-Op Diagnosis: same Anesthesia Technique: General ET Tube Primary Surgeon: Ga Reynaga Anesthesia Provider: Saqib Booker Pathology: Product of conception Fluid Replacement, Intraop: 1,400 EBL in mLs: 100 Complications: None Condition: Fair Free Text/Narrative:: Intake & Output 09/30/19 09/30/19 10/01/19 14:59 22:59 06:59 Intake Total 2 0 Balance 2 0
--- NOTE | 2019-10-01 07:36 | PCM48HPAN ---
Post Anesthesia Note - EVALUATION WITHIN 48HRS OF ANESTHETIC Vital Signs in Normal Range: Yes Patient Participated in Evaluation: Yes Respiratory Function Stable: Yes Airway Patent: Yes Cardiovascular Function Stable: Yes Hydration Status Stable: Yes Pain Control Satisfactory: Yes Nausea and Vomiting Control Satisfactory: Yes Mental Status Recovered: Yes Vital Signs: Last Vital Signs Temp 36.7 C 10/01/19 07:00 Pulse 91 10/01/19 05:45 Resp 15 10/01/19 06:30 BP 99/51 L 10/01/19 07:00 Pulse Ox 95 10/01/19 06:30
[2019-10-01] MEDS ORDERED: Ketorolac 30 MG/ML SDV IVPUSH PRN (09:00)
[2019-10-01] MEDS ORDERED: Diphtheria,Pertussis(Acell),Tetanus Vaccine 0.5 ML Syringe IM ONE (09:08)
[2019-10-01] MEDS ORDERED: FLU Vacc QS2019-20(6MOS+)/PF 60 MCG/0.5 ML SYRINGE IM ONE (09:30)
--- NOTE | 2019-10-01 10:11 | PCM.SURGPN ---
- General Info Date of Service: 10/01/19 Date of Surgery/Procedure: 10/01/19 POD#: 0 Post-Op Diagnosis: Incomplete . Acute Blood loss anemia Functional Status: Reports: Pain Controlled, Tolerating Diet, Ambulating, Urinating - Review of Systems General: Reports: Fatigue HEENT: Reports: No Symptoms Pulmonary: Reports: No Symptoms Cardiovascular: Reports: No Symptoms Gastrointestinal: Reports: No Symptoms Genitourinary: Reports: No Symptoms Musculoskeletal: Reports: No Symptoms Skin: Reports: No Symptoms Neurological: Reports: No Symptoms - Patient Data Vitals - Most Recent: Last Vital Signs Temp 36.7 C 10/01/19 07:00 Pulse 95 10/01/19 08:00 Resp 17 10/01/19 08:00 BP 92/51 L 10/01/19 08:00 Pulse Ox 98 10/01/19 08:00 Weight - Most Recent: 108.862 kg I&O - Last 24 Hours: Intake & Output 09/30/19 10/01/19 10/01/19 22:59 06:59 14:59 Intake Total 2 3650 Balance 2 3650 Lab Results Last 24 Hrs: Laboratory Results - last 24 hr 09/30/19 09/30/19 09/30/19 Range/Units 21:04 21:04 21:04 WBC 13.41 H (4.0-11.0) K/uL RBC 2.81 L (4.30-5.90) M/uL Hgb 8.6 L (12.0-16.0) g/dL Hct 25.7 L (36.0-46.0) % MCV 91.5 (80.0-98.0) fL MCH 30.6 (27.0-32.0) pg MCHC 33.5 (31.0-37.0) g/dL RDW Std Deviation 42.4 (28.0-62.0) fl RDW Coeff of Sheela 13 (11.0-15.0) % Plt Count 188 (150-400) K/uL MPV 9.40 (7.40-12.00) fL Neut % (Auto) 77.3 (48.0-80.0) % Lymph % (Auto) 15.5 L (16.0-40.0) % [place] % (Auto) 6.5 (0.0-15.0) % Eos % (Auto) 0.6 (0.0-7.0) % Baso % (Auto) 0.1 (0.0-1.5) % Neut # (Auto) 10.4 H (1.4-5.7) K/uL Lymph # (Auto) 2.1 (0.6-2.4) K/uL [place] # (Auto) 0.9 H (0.0-0.8) K/uL Eos # (Auto) 0.1 (0.0-0.7) K/uL Baso # (Auto) 0.0 (0.0-0.1) K/uL Nucleated RBC % 0.0 /100WBC Nucleated RBCs # 0 K/uL Sodium 141 (136-145) mmol/L Potassium 4.1 (3.5-5.1) mmol/L Chloride 105 (98-107) mmol/L Carbon Dioxide 24.4 (21.0-32.0) mmol/L BUN 9 (7.0-18.0) mg/dL Creatinine 1.0 (0.6-1.0) mg/dL Est Cr Clr Drug Dosing 91.94 mL/min Estimated GFR (MDRD) > 60.0 ml/min Glucose 133 H (74-106) mg/dL Calcium 9.5 (8.5-10.1) mg/dL Total Bilirubin 0.2 (0.2-1.0) mg/dL AST 14 L (15-37) IU/L ALT 21 (14-63) IU/L Alkaline Phosphatase 54 (46-116) U/L Total Protein 6.3 L (6.4-8.2) g/dL Albumin 3.1 L (3.4-5.0) g/dL Globulin 3.2 (2.6-4.0) g/dL Albumin/Globulin Ratio 1.0 (0.9-1.6) HCG, Quant 14392.0 mIU/mL Urine Color Urine Appearance Urine pH (5.0-8.0) Ur Specific [place] (1.001-1.035) Urine Protein (NEGATIVE) mg/dL Urine Glucose (UA) (NEGATIVE) mg/dL Urine Ketones (NEGATIVE) mg/dL Urine Occult Blood (NEGATIVE) Urine Nitrite (NEGATIVE) Urine Bilirubin (NEGATIVE) Urine Urobilinogen (<2.0) EU/dL Ur Leukocyte Esterase (NEGATIVE) Urine RBC (0-2/HPF) Urine WBC (0-5/HPF) Ur Epithelial Cells (NONE-FEW) Urine Bacteria (NEGATIVE) Blood Type O NEGATIVE Antibody Screen NEGATIVE Rhogam Indicated YES Crossmatch See Detail 10/01/19 10/01/19 10/01/19 Range/Units 00:45 01:30 09:08 WBC 9.72 (4.0-11.0) K/uL RBC 2.43 L (4.30-5.90) M/uL Hgb 7.3 L (12.0-16.0) g/dL Hct 21.3 L (36.0-46.0) % MCV 87.7 (80.0-98.0) fL MCH 30.0 (27.0-32.0) pg MCHC 34.3 (31.0-37.0) g/dL RDW Std Deviation 46.7 (28.0-62.0) fl RDW Coeff of Sheela 15 (11.0-15.0) % Plt Count 151 (150-400) K/uL MPV 9.40 (7.40-12.00) fL Neut % (Auto) 66.6 (48.0-80.0) % Lymph % (Auto) 25.2 (16.0-40.0) % [place] % (Auto) 7.2 (0.0-15.0) % Eos % (Auto) 0.9 (0.0-7.0) % Baso % (Auto) 0.1 (0.0-1.5) % Neut # (Auto) 6.5 H (1.4-5.7) K/uL Lymph # (Auto) 2.5 H (0.6-2.4) K/uL [place] # (Auto) 0.7 (0.0-0.8) K/uL Eos # (Auto) 0.1 (0.0-0.7) K/uL Baso # (Auto) 0.0 (0.0-0.1) K/uL Nucleated RBC % 0.0 /100WBC Nucleated RBCs # 0 K/uL Sodium (136-145) mmol/L Potassium (3.5-5.1) mmol/L Chloride (98-107) mmol/L Carbon Dioxide (21.0-32.0) mmol/L BUN (7.0-18.0) mg/dL Creatinine (0.6-1.0) mg/dL Est Cr Clr Drug Dosing mL/min Estimated GFR (MDRD) ml/min Glucose (74-106) mg/dL Calcium (8.5-10.1) mg/dL Total Bilirubin (0.2-1.0) mg/dL AST (15-37) IU/L ALT (14-63) IU/L Alkaline Phosphatase (46-116) U/L Total Protein (6.4-8.2) g/dL Albumin (3.4-5.0) g/dL Globulin (2.6-4.0) g/dL Albumin/Globulin Ratio (0.9-1.6) HCG, Quant mIU/mL Urine Color YELLOW Urine Appearance SLT CLOUDY Urine pH 6.0 (5.0-8.0) Ur Specific [place] 1.015 (1.001-1.035) Urine Protein NEGATIVE (NEGATIVE) mg/dL Urine Glucose (UA) NEGATIVE (NEGATIVE) mg/dL Urine Ketones NEGATIVE (NEGATIVE) mg/dL Urine Occult Blood LARGE H (NEGATIVE) Urine Nitrite NEGATIVE (NEGATIVE) Urine Bilirubin NEGATIVE (NEGATIVE) Urine Urobilinogen 0.2 (<2.0) EU/dL Ur Leukocyte Esterase SMALL H (NEGATIVE) Urine RBC 40-50 (0-2/HPF) Urine WBC 1-4 (0-5/HPF) Ur Epithelial Cells FEW (NONE-FEW) Urine Bacteria RARE (NEGATIVE) Blood Type O NEGATIVE Antibody Screen NEGATIVE Rhogam Indicated Crossmatch See Detail Med Orders - Current: Current Medications Fentanyl (Sublimaze) 50 mcg IVPUSH Q5M PRN PRN Reason: Pain Lactated Ringer's (Ringers, Lactated) 1,000 mls @ 125 mls/hr IV ASDIRECTED [facility] Last Admin: 10/01/19 06:43 Dose: 125 mls/hr Ketorolac Tromethamine (Toradol) 30 mg IVPUSH Q6H PRN PRN Reason: Pain (severe 7-10) Stop: 10/06/19 09:01 Morphine Sulfate (Morphine) 4 mg IVPUSH Q2H PRN PRN Reason: Pain (severe 7-10) Ondansetron HCl (Zofran) 4 mg IVPUSH Q6H PRN PRN Reason: Nausea/Vomiting Oxycodone/Acetaminophen (Percocet 325-5 Mg) 1 tab PO Q4H PRN PRN Reason: Pain (moderate 4-6) Oxycodone/Acetaminophen (Percocet 325-5 Mg) 2 tab PO Q4H PRN PRN Reason: Pain (moderate 4-6) Promethazine HCl (Phenergan) 25 mg IM Q6H PRN PRN Reason: Nausea/Vomiting Discontinued Medications Diphtheria/Tetanus/Acell Pertussis (Adacel) 0.5 ml IM .ONCE ONE Stop: 10/01/19 09:09 Doxycycline Hyclate (Vibramycin) 200 mg PO ONETIME ONE Stop: 10/01/19 01:26 Last Admin: 10/01/19 01:34 Dose: 200 mg Doxycycline Hyclate (Vibramycin) 100 mg PO ONETIME ONE Stop: 10/01/19 05:01 Last Admin: 10/01/19 07:29 Dose: Not Given Etomidate (Amidate) Confirm Administered Dose 40 mg IVPUSH .STK-MED ONE Stop: 10/01/19 02:05 Fentanyl (Sublimaze) Confirm Administered Dose 100 mcg .ROUTE .STK-MED ONE Stop: 10/01/19 02:07 Glycopyrrolate (Robinul) Confirm Administered Dose 0.2 mg .ROUTE .STK-MED ONE Stop: 10/01/19 02:06 Sodium Chloride (Normal Saline) 1,000 mls @ 999 mls/hr IV STAT ONE Stop: 09/30/19 22:15 Last Admin: 09/30/19 23:00 Dose: 999 mls/hr Sodium Chloride (Normal Saline) 1,000 mls @ 999 mls/hr IV .Bolus ONE Stop: 10/01/19 02:51 Last Admin: 10/01/19 02:05 Dose: 999 mls/hr Sodium Chloride (Normal Saline) 1,000 mls @ 999 mls/hr IV .Bolus ONE Stop: 10/01/19 02:51 Last Admin: 10/01/19 02:06 Dose: 999 mls/hr Influenza Virus Vaccine (Pharmacy To Dose - Influenza Vaccine) 1 each IM ONETIME ONE Stop: 10/01/19 09:08 Influenza Virus Vaccine (Fluzone Quad [id number] Syringe) 60 mcg IM .ONCE ONE Stop: 10/01/19 09:31 Ketorolac Tromethamine (Toradol) 30 mg IVPUSH ONETIME ONE Stop: 10/01/19 03:40 Last Admin: 10/01/19 04:00 Dose: 30 mg Lidocaine HCl (Xylocaine-Mpf 1%) Confirm Administered Dose 5 ml .ROUTE .STK-MED ONE Stop: 10/01/19 02:05 Methylergonovine Maleate (Methergine) 0.2 mg PO ONETIME ONE Stop: 10/01/19 01:48 Last Admin: 10/01/19 02:03 Dose: Not Given Methylergonovine Maleate (Methergine) Confirm Administered Dose 0.2 mg .ROUTE .STK-MED ONE Stop: 10/01/19 01:56 Last Admin: 10/01/19 02:03 Dose: Not Given Methylergonovine Maleate (Methergine) 0.2 mg IM Q4H ONE Stop: 10/01/19 02:03 Last Admin: 10/01/19 02:03 Dose: 0.2 mg Midazolam HCl (Versed 1 Mg/Ml) Confirm Administered Dose 2 mg .ROUTE .STK-MED ONE Stop: 10/01/19 02:07 Misoprostol (Cytotec) Confirm Administered Dose 800 mcg .ROUTE .STK-MED ONE Stop: 10/01/19 02:34 Last Admin: 10/01/19 07:29 Dose: Not Given Ondansetron HCl (Zofran) Confirm Administered Dose 4 mg .ROUTE .STK-MED ONE Stop: 10/01/19 02:05 Phenylephrine HCl (Lalo-Synephrine) Confirm Administered Dose 10 mg .ROUTE .STK- MED ONE Stop: 10/01/19 02:03 Tranexamic Acid (Cyklokapron) Confirm Administered Dose 1,000 mg .ROUTE .STK- MED ONE Stop: 10/01/19 02:29 - Exam General: Alert HEENT: Pupils Equal Lungs: Clear to Auscultation, Rhonchi Cardiovascular: Regular Rate GI/Abdominal Exam: Normal Bowel Sounds Extremities: Normal Inspection Sepsis Event Note - Evaluation Sepsis Screening Result: No Definite Risk - Focused Exam Vital Signs: Vital Signs Temp Temp Pulse Resp BP Pulse Ox 10/01/19 08:00 95 17 92/51 L 98 10/01/19 07:00 36.7 C 99/51 L 10/01/19 06:30 15 91/48 L 95 10/01/19 06:00 36.7 C 16 98/49 L 95 10/01/19 05:45 91 15 107/53 L 95 10/01/19 05:30 92 14 106/51 L 95 10/01/19 05:15 36.9 C 94 14 115/53 L 98 10/01/19 04:05 106 H 11 L 114/35 L 100 10/01/19 04:00 92 13 128/49 L 100 10/01/19 03:55 100 14 122/53 L 100 10/01/19 03:50 100 13 119/50 L 100 10/01/19 03:45 99 10 L 118/49 L 100 10/01/19 03:40 99 9 L 112/43 L 100 10/01/19 03:35 109 H 12 120/50 L 100 10/01/19 03:30 106 H 18 115/59 L 100 10/01/19 03:25 105 H 12 114/64 100 10/01/19 03:20 102 H 11 L 107/66 100 10/01/19 03:15 110 H 15 117/56 L 99 10/01/19 03:10 37 C 135 H 18 125/48 L 98 10/01/19 02:08 104 H 16 127/81 100 10/01/19 02:00 100 16 127/81 10/01/19 01:52 36.9 C 98 16 110/66 10/01/19 01:34 97 16 103/79 100 09/30/19 23:48 97 16 120/55 L 100 09/30/19 23:10 36.2 C 97 16 124/61 09/30/19 22:49 36.2 C 103 H 16 139/61 09/30/19 22:09 93 16 136/69 100 Date Exam was Performed: 10/01/19 Time Exam was Performed: 10:07 - Problem List & Annotations (1) Incomplete SNOMED Code(s): 090219454 Code(s): O03.4 - INCOMPLETE SPONTANEOUS WITHOUT COMPLICATION Status: Acute Current Visit: Yes (2) Anemia due to blood loss, acute SNOMED Code(s): 744164411 Code(s): D62 - ACUTE POSTHEMORRHAGIC ANEMIA Status: Acute Current Visit: Yes - Problem List Review Problem List Initiated/Reviewed/Updated: Yes - My Orders Last 24 Hours: Active Orders 24 hr Category Date Time Status Admission Status [Patient Status] [ADT] Stat ADT 10/01/19 02:22 Active Patient Status [ADT] Routine ADT 10/01/19 03:40 Active Antiembolic Devices [RC] PER UNIT ROUTINE Care 10/01/19 03:40 Active Influenza Vaccine Charge [RC] .DISCHARGE Care 10/01/19 09:08 Active Notify Provider Consults [RC] ASDIRECTED Care 10/01/19 00:37 Active Notify Provider Intake and Out [RC] ASDIRECTED Care 10/01/19 03:40 Active Notify Provider Vital Signs [RC] ASDIRECTED Care 10/01/19 03:40 Active RT Incentive Spirometry [RC] Q2HWA Care 10/01/19 03:40 Active Up With Assistance [RC] PER UNIT ROUTINE Care 10/01/19 03:40 Active Up ad Teagan [RC] PER UNIT ROUTINE Care 10/01/19 03:40 Active Vaccines to be Administered [RC] PER UNIT ROUTINE Care 10/01/19 09:08 Active Vital Signs [RC] PER UNIT ROUTINE Care 10/01/19 03:40 Active Consult to Physician [CONS] Stat Cons 10/01/19 00:36 Active Regular Diet [DIET] Diet 10/01/19 Breakfast Active RED BLOOD CELLS LP [BBK] Stat Lab 10/01/19 00:32 Results RED BLOOD CELLS LP [BBK] Stat Lab 10/01/19 00:45 Results RH IMMUNE GLOBULIN [BBK] Stat Lab 09/30/19 21:04 Results RHOGAM, [RHIG WORKUP, ] [BBK] Stat Lab 09/30/19 21:04 Results TYPE AND SCREEN [BBK] Stat Lab 09/30/19 21:04 Results TYPE AND SCREEN [BBK] Stat Lab 10/01/19 00:45 Results Acetaminophen/oxyCODONE [Percocet 325-5 MG] Med 10/01/19 03:39 Active 1 tab PO Q4H PRN Acetaminophen/oxyCODONE [Percocet 325-5 MG] Med 10/01/19 03:39 Active 2 tab PO Q4H PRN Ketorolac [Toradol] Med 10/01/19 09:00 Active 30 mg IVPUSH Q6H PRN Lactated Ringers [Ringers, Lactated] 1,000 ml Med 10/01/19 03:45 Active IV ASDIRECTED Morphine Med 10/01/19 03:39 Active 4 mg IVPUSH Q2H PRN Ondansetron [Zofran] Med 10/01/19 03:39 Active 4 mg IVPUSH Q6H PRN Promethazine [Phenergan] Med 10/01/19 03:39 Active 25 mg IM Q6H PRN fentaNYL [Sublimaze] Med 10/01/19 01:59 Active 50 mcg IVPUSH Q5M PRN Peripheral IV Discontinue [OM.PC] Routine Oth 10/01/19 03:40 Ordered Sequential Compression Device [OM.PC] Per Unit Routine Oth 10/01/19 03:40 Ordered Resuscitation Status Routine Resus Stat 10/01/19 03:39 Ordered Medication Orders Fentanyl (Sublimaze) 50 mcg IVPUSH Q5M PRN PRN Reason: Pain Lactated Ringer's (Ringers, Lactated) 1,000 mls @ 125 mls/hr IV ASDIRECTED [facility] Last Admin: 10/01/19 06:43 Dose: 125 mls/hr Ketorolac Tromethamine (Toradol) 30 mg IVPUSH Q6H PRN PRN Reason: Pain (severe 7-10) Stop: 10/06/19 09:01 Morphine Sulfate (Morphine) 4 mg IVPUSH Q2H PRN PRN Reason: Pain (severe 7-10) Ondansetron HCl (Zofran) 4 mg IVPUSH Q6H PRN PRN Reason: Nausea/Vomiting Oxycodone/Acetaminophen (Percocet 325-5 Mg) 1 tab PO Q4H PRN PRN Reason: Pain (moderate 4-6) Oxycodone/Acetaminophen (Percocet 325-5 Mg) 2 tab PO Q4H PRN PRN Reason: Pain (moderate 4-6) Promethazine HCl (Phenergan) 25 mg IM Q6H PRN PRN Reason: Nausea/Vomiting - Assessment Assessment (Free Text/Narrative):: 29yo P1021 s/p suction D & C for incomplete , s/p 2uPRBC Bleeding is scant Bps; 80-90s/40 - 50s , HRs; 90s - 100s H/H 7.3/21.3 - Plan Plan (Free Text/Narrative):: Plan Transfuse 2 units of blood Posttransfusion CBC and discharge home
--- NOTE | 2019-10-01 15:35 | OR ---
SURGEON: XOCHITL MCCABE DATE OF PROCEDURE:10/01/2019 PREOPERATIVE DIAGNOSIS: A 29-year-old G3, P1-0-1-1 at 10 weeks 0 days with incomplete . POSTOPERATIVE DIAGNOSIS: A 29-year-old G3, P1-0-1-1 at 10 weeks 0 days with incomplete . PROCEDURE: Suction dilatation and curettage. ESTIMATED BLOOD LOSS: 100. IV FLUID: 1400. URINE OUTPUT: Minimal. ANESTHESIA: General. NOTES AND FINDINGS: Examination under general anesthesia showed about a 10-week size uterus. Cervix was opened with the products of conception inside it. Moderate amount of bleeding was noted. BRIEF HISTORY ABOUT THE PATIENT: A 29-year-old, G3, P1-0-1-1 at 10 weeks 0 days. Last menstrual period was July 22. She said she was bleeding for 3 days and she came into the hospital because her bleeding increased that day and she was complaining of almost passing out and dizziness. When she came in, she was noted to be slightly tachycardic. She was examined, noted to have some products in the os. Attempt was made to remove the products in the os in the ER, which increased bleeding. An ultrasound was also done, which showed some echogenic substance in the uterus and more in the lower uterine segment of the cervix. As a result of this, the patient was counseled for surgical management, which she accepted. She was explained the risks, benefits, and alternatives, and she decided to proceed. Because of the amount of bleeding, her hemoglobin was 8 and 2 units of blood was cross-matched, so she was given 1 unit in the OR also. PROCEDURE IN DETAIL: The patient was taken to the operating room, she was prepared and draped in the dorsal lithotomy position with Saul stirrups. The cervix was exposed with the aid of the speculum. Then, the anterior lip of the cervix was grasped with an Allis forceps. A size 11 curved curette was passed in through the cervical os and in a rotatory motion product of conception was obtained with the suction curette, after which the size 5 sharp curette was placed and gentle curettage was done. Again, the curved curette was then placed again to empty the contents of the uterus. Uterus was noted to be firm after the procedure. She received 1 g of tranexamic acid. She also received 0.2 mg of Methergine and she received 800 mg of Cytotec per rectum. After the procedure, bleeding was noted to be significantly reduced. Uterus was contracted to about 8 week size. She was taken to the recovery room in stable condition. The patient would have a postop H and H and will be observed before discharge. The patient tolerated the procedure well. KO JANSEN /[id number] MTDD
== END 2019-10-01 16:49 | disposition home or self-care (01) ==
LOC: MW.ED 20:42 → MW.SDS 10-01 02:24 → MW.OB 10-01 03:40 → MW.SDS 10-01 16:49
PROVIDERS: ATTEND Obstetrics & Gynecology
DX: O03.4 Incomplete spontaneous abortion without complication (principal); O41.1410 Placentitis, first trimester, not applicable or unspecified; O43.891 Other placental disorders, first trimester; O99.331 Smoking (tobacco) complicating pregnancy, first trimester; F17.210 Nicotine dependence, cigarettes, uncomplicated; Z67.41 Type O blood, Rh negative; Z98.890 Other specified postprocedural states; Z23 Encounter for immunization; Z3A.10 10 weeks gestation of pregnancy; Z88.0 Allergy status to penicillin
CPT/HCPCS: 36415; 36430; 59812; 76801; 80053; 81001; 84702; 85014; 85018; 85025; 86850; 86900; 86901; 86920; 86921; 86922; 88305; 90471; 90686; 90715; 96360; 96361; 96372; 99284; A9270; J0330; J1885; J2001; J2210; J2250; J2370; J2405; J2792; J3010; J3490; J7030; J7120; P9016; 01965; 99283; G0008